=== PATIENT | female | born 1970 | race Caucasian/White ===

== ENCOUNTER → 2022-05-19 | Outpatient (CLI) | payer OTHER | LOC: M WHC 12:11 | PROVIDERS: ATTEND Student in an Organized Health Care Education/Training Program | DX: Z12.31 Encounter for screening mammogram for malignant neoplasm of breast (principal) ==

== ENCOUNTER → 2022-06-19 | Outpatient (REF) | payer OTHER, MEDICARE | LOC: M SFHCWAGY 16:55 | PROVIDERS: ATTEND Nurse Practitioner Family | DX: R10.2 Pelvic and perineal pain (principal) ==

== ENCOUNTER → 2022-12-04 | Outpatient (REF) | payer OTHER, MEDICARE | LOC: M SFHCWAGY 17:08 | PROVIDERS: ATTEND Nurse Practitioner Family | DX: R10.2 Pelvic and perineal pain (principal) ==

== ENCOUNTER → 2023-03-13 | Outpatient (REF) | payer OTHER | LOC: M SFHCWAGY 15:34 | PROVIDERS: ATTEND Specialist | DX: R10.2 Pelvic and perineal pain (principal) ==

== ENCOUNTER → 2023-03-13 | Outpatient (CLI) | payer OTHER ==
[2023-03-13 15:07] LABS: BASO # 0.1 10^3/uL (0.0-0.2); BASO % 1.6 % (0.0-1.0); EOS # 0.1 10^3/uL (0.0-0.5); EOS % 2.4 % (0.0-3.0); HEMATOCRIT 45.6 % (36.0-47.0); HEMOGLOBIN 14.6 g/dl (12.0-15.5); LYMPH # 1.6 10^3/uL (1.5-5.0); LYMPH % 31.7 % (24.0-44.0); MEAN CORPUSCULAR VOLUME 87.4 fl (80.0-96.0); MONO # 0.6 10^3/uL (0.0-0.8); MONO % 11.5 % (2.0-8.0); NEUTROPHILS # 2.6 10^3/uL (1.5-8.5); NEUTROPHILS % 52.6 % (36.0-66.0); PLATELET COUNT, AUTOMATED 384 10^3/uL (150-450); RED BLOOD COUNT 5.22 10^6/uL (4.00-5.40)
[2023-03-13 15:30] LABS: HEMOGLOBIN A1c 5.5 % (4.0-6.0)
[2023-03-13 15:32] LABS: LIPASE 26 U/L (12-53)
[2023-03-13 15:34] LABS: ALKALINE PHOSPHATASE 73 U/L (46-116); ALT/SGPT 25 U/L (7.0-40); AST/SGOT 19 U/L (<34); BILIRUBIN,TOTAL 0.6 MG/DL (0.3-1.2); BLOOD UREA NITROGEN 13 MG/DL (9-23); CALCIUM LEVEL 9.7 MG/DL (8.5-10.1); CARBON DIOXIDE LEVEL 26 MMOL/L (20-31); CHLORIDE LEVEL 108 MMOL/L (98-107); CHOLESTEROL LEVEL 284 MG/DL (<200); CHOLESTEROL RISK RATIO 4.05 (<5); GLOMERULAR FILTRATION RATE > 60.0 (>51); GLUCOSE, FASTING 92 MG/DL (60-100); HDL CHOLESTEROL 70.1 MG/DL (>40); LDL CHOLESTEROL 196.9 MG/DL (<100); NON-HDL-C 213.9 MG/DL; POTASSIUM SERUM 5.2 MMOL/L (3.5-5.1); SODIUM LEVEL 139 MMOL/L (136-145); TOTAL PROTEIN 7.2 G/DL (5.7-8.2); TRIGLYCERIDES LEVEL 85 MG/DL (<150)
[2023-03-13 15:35] LABS: THYROID STIMULATING HORMONE 4.897 uIU/ML (0.55-4.78); TOTAL 25(OH) VITAMIN D 34.3 NG/ML (20.0-100.0)
[2023-03-13 15:36] LABS: FREE T4 0.97 NG/DL (0.89-1.76); VITAMIN B12 LEVEL 721 PG/ML (211-911)
== END ==
LOC: M PLALAB 11:08
PROVIDERS: ATTEND Physician Assistant
DX: Z00.00 Encounter for general adult medical examination without abnormal findings (principal); Z83.49 Family history of other endocrine, nutritional and metabolic diseases; Z13.220 Encounter for screening for lipoid disorders; Z13.1 Encounter for screening for diabetes mellitus; M79.89 Other specified soft tissue disorders; R10.84 Generalized abdominal pain

== ENCOUNTER → 2023-05-01 | Outpatient (CLI) | payer OTHER | LOC: M RAD 12:05 | PROVIDERS: ATTEND Specialist | DX: R10.2 Pelvic and perineal pain (principal) ==

== ENCOUNTER → 2023-09-17 | Outpatient (REF) | payer OTHER | LOC: M SFHCWAGY 12:58 | PROVIDERS: ATTEND Nurse Practitioner Family | DX: R10.2 Pelvic and perineal pain (principal) ==

== ENCOUNTER → 2023-09-17 | Outpatient (REF) | payer OTHER ==
[2023-09-18 14:17] LABS: BVAB 2 NEGATIVE (NEGATIVE); CANDIDA ALBICANS NAA NOT DETECTED (NOT DETECTED); CANDIDA GLABRATA NAA NOT DETECTED (NOT DETECTED); TRICH VAG BY NAA NOT DETECTED (NOT DETECTED)
[2023-09-18 14:21] LABS: CHLAMYDIA TRACHOMATIS NAA NOT DETECTED (NOT DETECTED); Neisseria gonorrhoeae NAA NOT DETECTED (NOT DETECTED)
== END ==
LOC: M SFHCWAGY 12:52
PROVIDERS: ATTEND Nurse Practitioner Family
DX: R10.2 Pelvic and perineal pain (principal); Z11.3 Encounter for screening for infections with a predominantly sexual mode of transmission

== ENCOUNTER → 2023-10-02 | Outpatient (CLI) | payer OTHER | LOC: M WHC 12:32 | PROVIDERS: ATTEND Physician Assistant | DX: R14.0 Abdominal distension (gaseous) (principal) ==

== ENCOUNTER → 2023-10-02 | Outpatient (CLI) | payer OTHER ==
[2023-10-02 13:42] LABS: BASO # 0.1 10^3/uL (0.0-0.2); BASO % 1.4 % (0.0-1.0); EOS # 0.1 10^3/uL (0.0-0.5); EOS % 2.5 % (0.0-3.0); HEMOGLOBIN 14.5 g/dl (12.0-15.5); LYMPH # 1.5 10^3/uL (1.5-5.0); LYMPH % 28.9 % (24.0-44.0); MEAN CORPUSCULAR HEMOGLOBIN 28.3 pg (27.0-33.0); MEAN CORPUSCULAR HGB CONC 32.2 g/dl (32.0-36.5); MEAN CORPUSCULAR VOLUME 87.7 fl (80.0-96.0); MONO # 0.6 10^3/uL (0.0-0.8); MONO % 10.9 % (2.0-8.0); NEUTROPHILS # 2.9 10^3/uL (1.5-8.5); NEUTROPHILS % 56.1 % (36.0-66.0); PLATELET COUNT, AUTOMATED 411 10^3/uL (150-450); RED BLOOD COUNT 5.13 10^6/uL (4.00-5.40); WHITE BLOOD COUNT 5.2 10^3/uL (4.0-10.0)
[2023-10-02 13:48] LABS: C REACTIVE PROTEIN QUANTITATIV < 0.40 MG/DL (<1.0)
[2023-10-02 13:50] LABS: ALBUMIN 3.7 G/DL (3.2-5.2); ALKALINE PHOSPHATASE 78 U/L (46-116); ALT/SGPT 21 U/L (7.0-40); AST/SGOT 11 U/L (<34); BILIRUBIN,TOTAL 0.5 MG/DL (0.3-1.2); BLOOD UREA NITROGEN 11 MG/DL (9-23); CALCIUM LEVEL 9.4 MG/DL (8.5-10.1); CARBON DIOXIDE LEVEL 28 MMOL/L (20-31); CHLORIDE LEVEL 107 MMOL/L (98-107); CHOLESTEROL LEVEL 272 MG/DL (<200); CHOLESTEROL RISK RATIO 4.61 (<5); CREATININE FOR GFR 0.66 MG/DL (0.55-1.30); GLOMERULAR FILTRATION RATE > 60.0 (>51); GLUCOSE, FASTING 94 MG/DL (60-100); LUTEINIZING HORMONE 29.4 mIU/ML; SODIUM LEVEL 137 MMOL/L (136-145); THYROID STIMULATING HORMONE 3.824 uIU/ML (0.55-4.78); TOTAL 25(OH) VITAMIN D 44.4 NG/ML (20.0-100.0); TOTAL PROTEIN 6.8 G/DL (5.7-8.2); TRIGLYCERIDES LEVEL 135 MG/DL (<150)
[2023-10-02 13:51] LABS: ERYTHROCYTE SEDIMENTATION RATE 28 mm/hr (0-30); FREE T4 0.99 NG/DL (0.89-1.76)
[2023-10-02 13:55] LABS: HEMOGLOBIN A1c 5.4 % (4.0-6.0)
[2023-10-02 14:35] LABS: LIPASE 27 U/L (12-53)
== END ==
LOC: M PLALAB 09:54
PROVIDERS: ATTEND Physician Assistant
DX: Z00.00 Encounter for general adult medical examination without abnormal findings (principal); R14.0 Abdominal distension (gaseous); Z13.220 Encounter for screening for lipoid disorders; Z13.1 Encounter for screening for diabetes mellitus; Z86.39 Personal history of other endocrine, nutritional and metabolic disease; N93.9 Abnormal uterine and vaginal bleeding, unspecified

== ENCOUNTER → 2024-02-04 | Outpatient (CLI) | payer OTHER | LOC: M WHC 11:07 | PROVIDERS: ATTEND Nurse Practitioner Family | DX: Z12.31 Encounter for screening mammogram for malignant neoplasm of breast (principal) ==

== ENCOUNTER → 2024-02-04 | Outpatient (CLI) | payer OTHER ==
[2024-02-04 15:57] LABS: HEPATITIS B SURFACE ANTIGEN NEGATIVE (NEGATIVE)
[2024-02-04 16:09] LABS: Trichomonas vaginalis (AMP) NOT DETECTED (NEGATIVE)
[2024-02-04 16:10] LABS: HIV 1&2 SCREEN NEGATIVE (NEGATIVE)
[2024-02-04 16:18] LABS: HEPATITIS B CORE ANTIBODY IGM NEGATIVE (NEGATIVE); HEPATITIS C VIRUS ABY INDEX 0.02 INDEX (<0.8)
[2024-02-04 16:32] LABS: GC DNA AMPLIFICATION NEGATIVE (NEGATIVE)
== END ==
LOC: M PLALAB 13:07
PROVIDERS: ATTEND Nurse Practitioner Family
DX: Z11.3 Encounter for screening for infections with a predominantly sexual mode of transmission (principal)

== ENCOUNTER → 2024-05-23 | Outpatient (CLI) | payer OTHER ==
[2024-05-23 09:41] LABS: HEMATOCRIT 43.6 % (36.0-47.0); HEMOGLOBIN 14.5 g/dl (12.0-15.5); MEAN CORPUSCULAR HEMOGLOBIN 28.8 pg (27.0-33.0); MEAN CORPUSCULAR HGB CONC 33.3 g/dl (32.0-36.5); MEAN CORPUSCULAR VOLUME 86.5 fl (80.0-96.0); PLATELET COUNT, AUTOMATED 354 10^3/uL (150-450); RED BLOOD COUNT 5.04 10^6/uL (4.00-5.40); WHITE BLOOD COUNT 5.9 10^3/uL (4.0-10.0)
[2024-05-23 09:47] LABS: ERYTHROCYTE SEDIMENTATION RATE 21 mm/hr (0-30)
[2024-05-23 10:07] LABS: C REACTIVE PROTEIN QUANTITATIV < 0.50 MG/DL (<1.0)
[2024-05-23 10:19] LABS: PROCALCITONIN <0.04 ng/ml
== END ==
LOC: M LAB 08:57
PROVIDERS: ATTEND Physician Assistant Medical
DX: B02.23 Postherpetic polyneuropathy (principal); R68.83 Chills (without fever)

== ENCOUNTER → 2024-07-08 | Outpatient (REF) | payer OTHER | LOC: M SFHCPLAZ 10:16 | PROVIDERS: ATTEND Nurse Practitioner Family | DX: J02.9 Acute pharyngitis, unspecified (principal) ==

== ENCOUNTER → 2024-08-27 | Outpatient (REF) | payer OTHER | LOC: M LAB REF 21:16 | PROVIDERS: ATTEND Physician Assistant | DX: B34.9 Viral infection, unspecified (principal) ==

== ENCOUNTER → 2025-01-02 | Outpatient (CLI) | payer OTHER ==
[~2025-01-02] MED LIST: PROHANCE 279.3MG/ML 15ML VIAL ONE
== END ==
LOC: M PLAIMG 07:42
PROVIDERS: ATTEND Nurse Practitioner Family
DX: K86.2 Cyst of pancreas (principal); N83.209 Unspecified ovarian cyst, unspecified side

== ENCOUNTER 2025-02-04 14:04 | Observation (INO) | payer OTHER ==
[~2025-02-04] VITALS: Ht 165.1 cm; Wt 78.0 kg
[2025-02-04 15:52] LABS: BASO # 0.1 10^3/uL (0.0-0.2); BASO % 1.1 % (0.0-1.0); EOS # 0.2 10^3/uL (0.0-0.5); EOS % 2.5 % (0.0-3.0); LYMPH # 1.7 10^3/uL (1.5-5.0); LYMPH % 26.6 % (24.0-44.0); MONO # 0.7 10^3/uL (0.0-0.8); MONO % 10.7 % (2.0-8.0); NEUTROPHILS # 3.7 10^3/uL (1.5-8.5); NEUTROPHILS % 58.8 % (36.0-66.0); PLATELET COUNT, AUTOMATED 413 10^3/uL (150-450)
[2025-02-04 15:54] LABS: KETONE, URINE AUTO RFX NEGATIVE (NEGATIVE); LEUKOCYTE ESTERASE UR AUTO RFX NEGATIVE (NEGATIVE); NITRITE, URINE AUTO RFX NEGATIVE (NEGATIVE); RBC, URINE AUTO RFX 0 /HPF (0-3); SQUAM EPITHELIAL CELL UR AURFX 0 /HPF (0-6); WBC, URINE AUTO RFX 0 /HPF (0-3)
[2025-02-04 16:17] LABS: ALT/SGPT 26 U/L (7.0-40); AST/SGOT 36 U/L (<34); CALCIUM LEVEL 9.4 MG/DL (8.5-10.1); CARBON DIOXIDE LEVEL 26 MMOL/L (20-31); CHLORIDE LEVEL 106 MMOL/L (98-107); CREATININE FOR GFR 0.60 MG/DL (0.55-1.30); GLOMERULAR FILTRATION RATE > 90.0 (>51); POTASSIUM SERUM 5.0 MMOL/L (3.5-5.1); SODIUM LEVEL 141 MMOL/L (136-145)
[2025-02-04] MEDS ORDERED: ISOVUE-370 76% 100 ML VIAL As Ordered ONE (16:44)
[2025-02-04] MEDS: MORPHINE 4 MG/ML 1 ML VIAL IV ONE ×2 (16:47→19:43)
[2025-02-04] MEDS: NS (Normal Saline) 0.9% 1,000 ML IV SCH (16:47)
[2025-02-04] MEDS: cefTRIAXone SOD 1 GM in DEXTROSE 5% (D5W) ADV/MINI-BAG 50 ML IV ONE (19:42)
[2025-02-04] MEDS: AZITHROMYCIN 250 MG TABLET PO ONE (19:43)
[2025-02-04 22:28] LABS: C REACTIVE PROTEIN QUANTITATIV 1.41 MG/DL (<1.0)
[2025-02-04] MEDS ORDERED: MAALOX 30 ML SUSP *UDC PO PRN (22:40)
[2025-02-04] MEDS ORDERED: MOM 30 ML SUSPENSION UDC PO PRN (22:40)
[2025-02-04] MEDS ORDERED: THERTAB19 PO (22:48)
[2025-02-04] MEDS ORDERED: OMEGCAP4 PO ×2 (22:48)
[2025-02-04] MEDS ORDERED: OYST1TAB PO (22:48)
[2025-02-04] MEDS ORDERED: VITA200012 PO (22:48)
[2025-02-04] MEDS ORDERED: IBUP80TA PO (22:50)
[2025-02-04] MEDS ORDERED: GABA-1171 PO (22:50)
[2025-02-04] MEDS ORDERED: FLUTISP NARES (22:50)
[2025-02-04] MEDS ORDERED: HOME MED LIST COMPLETE! XX SCH (22:55)
[2025-02-04] MEDS: ONDANSETRON 4MG/2ML VIAL IV ONE (23:30)
[2025-02-04] MEDS: HYOSCYAMINE SULFATE 0.125 MG SUBL TABLET SL ONE (23:31)
[2025-02-04] MEDS: PANTOPRAZOLE 40MG VIAL IV ONE (23:31)
[2025-02-04] MEDS: LR 1,000 ML IV ONE (23:31)
[2025-02-04] MEDS: ACETAMINOPHEN 325 MG TAB PO PRN (23:43)
[2025-02-05 00:40] VITALS: BP 96/51; TEMP 97.3; O2SAT 93
[2025-02-05] MEDS: LR 1,000 ML IV SCH (03:38)
[2025-02-05 04:00] VITALS: BP 85/50; TEMP 96.9; O2SAT 92
[2025-02-05 04:15] VITALS: BP 93/58
[2025-02-05 05:28] VITALS: BP 95/53
[2025-02-05] MEDS: ACETAMINOPHEN *IV* 1,000 MG in IV 1 EA IV PRN (05:28)
[2025-02-05 07:15] LABS: HEPATITIS C VIRUS ABY INDEX < 0.02 INDEX (<0.8); HIV 1&2 SCREEN NEGATIVE (NEGATIVE)
[2025-02-05] MEDS ORDERED: PROHANCE 279.3MG/ML 15ML VIAL As Ordered ONE (07:39)
[2025-02-05] MEDS: PANTOPRAZOLE 40MG VIAL IV SCH (09:41)
[2025-02-05] MEDS: DOCUSATE SODIUM 100 MG CAPSULE PO SCH (09:41)
[2025-02-05] MEDS: KETOROLAC 30 MG/ML 1 ML VIAL IV PRN (09:53)
[2025-02-05] MEDS: NS (Normal Saline) 0.9% 1,000 ML IV ONE (09:53)
[2025-02-05 12:02] VITALS: BP 92/50
[2025-02-05] MEDS ORDERED: DICYCLOMINE 10 MG CAP PO PRN (13:15)
[2025-02-05] MEDS: DICYCLOMINE INJ 20 MG/2 ML IM ONE (14:18)
[2025-02-05] MEDS: SENNA 8.6 MG TAB PO SCH (14:20)
[2025-02-05] MEDS: KETOROLAC 30 MG/ML 1 ML VIAL IV SCH (16:04)
[2025-02-05] MEDS: RIVAROXABAN 10MG TAB PO SCH (19:45)
[2025-02-05] MEDS: FUROSEMIDE 40 MG/4 ML VIAL IV ONE (19:46)
[2025-02-05 20:00] VITALS: BP 107/61; TEMP 97.7; O2SAT 93
[2025-02-05] MEDS: chlordiazePOXIDE 25 MG CAP PO SCH (21:00)
[2025-02-06 04:00] VITALS: BP 91/55; TEMP 97.4; O2SAT 90
[2025-02-06] MEDS: predniSONE 20 MG TAB PO ONE (11:25)
[2025-02-06 11:28] VITALS: BP 102/60
[2025-02-06] MEDS: FUROSEMIDE 40 MG/4 ML VIAL IV ONE (11:28)
[2025-02-06 12:00] VITALS: BP 96/54; TEMP 97.7; O2SAT 94
[2025-02-06] MEDS ORDERED: BENA25CA4 PO (13:37)
[2025-02-06] MEDS ORDERED: PRED20TA PO (13:37)
[2025-02-06] MEDS ORDERED: FAMO20TA PO (13:37)
[2025-02-06] MEDS ORDERED: PROBCAP14 PO (14:11)
== END 2025-02-06 14:20 | disposition home or self-care (01) ==
LOC: M ED 14:04 → M ED INP 14:05 → M MS4PR 02-05 00:40
PROVIDERS: ADMIT Student in an Organized Health Care Education/Training Program; ATTEND Internal Medicine Nephrology
DX: R10.9 Unspecified abdominal pain (principal); I95.9 Hypotension, unspecified; R76.0 Raised antibody titer; M54.13 Radiculopathy, cervicothoracic region; K58.8 Other irritable bowel syndrome; K86.9 Disease of pancreas, unspecified; M43.17 Spondylolisthesis, lumbosacral region; G62.9 Polyneuropathy, unspecified; Z98.1 Arthrodesis status; M54.50 Low back pain, unspecified; K57.92 Diverticulitis of intestine, part unspecified, without perforation or abscess without bleeding; Z79.899 Other long term (current) drug therapy
CPT/HCPCS: 36415; 71046; 71275; 74177; 74183; 80048; 80053; 80074; 80076; 81001; 81002; 82150; 83605; 83690; 84145; 85025; 85027; 85652; 86140; 87040; 87070; 87077; 87086; 87186; 87389; 87486; 87581; 87624; 87633; 87661; 87798; 87810; 87850; 88142; 93005; 93041; 94760; 96361; 96365; 96375; 96376; 99214; 99285; A9576; J0131; J0696; J1885; J1938; J2405; J2470; J2919; J7512; Q9967

== ENCOUNTER → 2025-02-04 | Outpatient (CLI) | payer OTHER ==
[~2025-02-04] MED LIST changes: +BENA25CA4 PO; +FAMO20TA PO; +FLUTISP NARES; +GABA-1171 PO; +IBUP80TA PO; +OMEGCAP4 PO; +OYST1TAB PO; +PRED20TA PO; +PROBCAP14 PO; -PROHANCE 279.3MG/ML 15ML VIAL ONE; +THERTAB19 PO; +VITA200012 PO
[2025-02-06 14:17] LABS: HPV APTIMA Not Detected (Not Detected)
== END ==
LOC: M WHC 12:45
PROVIDERS: ATTEND Nurse Practitioner Family
DX: Z12.4 Encounter for screening for malignant neoplasm of cervix (principal)

== ENCOUNTER → 2025-02-04 | Outpatient (CLI) | payer OTHER ==
[2025-02-04 14:10] LABS: ALT/SGPT 21 U/L (7.0-40); AST/SGOT 16 U/L (<34); CALCIUM LEVEL 9.7 MG/DL (8.5-10.1); CARBON DIOXIDE LEVEL 26 MMOL/L (20-31); CHLORIDE LEVEL 107 MMOL/L (98-107); CREATININE FOR GFR 0.67 MG/DL (0.55-1.30); GLOMERULAR FILTRATION RATE > 90.0 (>51); POTASSIUM SERUM 5.4 MMOL/L (3.5-5.1); SODIUM LEVEL 142 MMOL/L (136-145)
[2025-02-04 14:17] LABS: PLATELET COUNT, AUTOMATED 434 10^3/uL (150-450)
[2025-02-04 16:39] LABS: Trichomonas vaginalis (AMP) NOT DETECTED (NEGATIVE)
[2025-02-04 17:03] LABS: GC DNA AMPLIFICATION NEGATIVE (NEGATIVE)
== END ==
LOC: M PLAIMG 11:04
PROVIDERS: ATTEND Nurse Practitioner Adult Health
DX: R07.89 Other chest pain (principal); R10.11 Right upper quadrant pain; R10.31 Right lower quadrant pain

== ENCOUNTER → 2025-02-19 | Outpatient (CLI) | payer OTHER ==
[2025-02-19 11:41] LABS: HIV 1&2 SCREEN NEGATIVE (NEGATIVE)
[2025-02-19 11:49] LABS: HEPATITIS C VIRUS ABY INDEX < 0.02 INDEX (<0.8)
== END ==
LOC: M PLALAB 09:10
PROVIDERS: ATTEND Nurse Practitioner Family
DX: Z11.3 Encounter for screening for infections with a predominantly sexual mode of transmission (principal)